=== PATIENT | female | born 1955 | race African-American/Black ===

== ENCOUNTER 2018-12-23 15:10 | Emergency (ER) | payer SELFPAY ==
[~2018-12-23] VITALS: Ht 152.4 cm; Wt 104.0 kg
[2018-12-23 16:21] VITALS: BP 143/89
== END 2018-12-23 18:33 | disposition home or self-care (01) ==
LOC: ER 15:10
DX: S90.01XA Contusion of right ankle, initial encounter (principal); S60.221A Contusion of right hand, initial encounter; I10 Essential (primary) hypertension; E11.9 Type 2 diabetes mellitus without complications; X58.XXXA Exposure to other specified factors, initial encounter; Y93.01 Activity, walking, marching and hiking; Y92.89 Other specified places as the place of occurrence of the external cause
CPT/HCPCS: 73610; 73630; 99283

== ENCOUNTER 2022-08-18 16:49 | Emergency (ER) | payer MEDICARE, MEDICAID ==
[~2022-08-18] VITALS: Ht 152.4 cm; Wt 93.0 kg
[2022-08-18] MEDS ORDERED: LIDOCAINE HCL 1% 20ML VIAL (Pyxis) INJ INFIL ONE (18:00)
[2022-08-18] MEDS ORDERED: LIDOCAINE HCL 1% 10 MG/ML 10ML VIAL INJ NR (18:30)
[2022-08-18] MEDS ORDERED: IBUP-2028 PO (18:53)
== END 2022-08-18 19:13 | disposition home or self-care (01) ==
LOC: ER 16:56
DX: L02.412 Cutaneous abscess of left axilla (principal); Z90.49 Acquired absence of other specified parts of digestive tract
CPT/HCPCS: 10060; 99282; J3490

== ENCOUNTER 2022-08-20 15:52 | Emergency (ER) | payer MEDICARE, MEDICAID ==
[~2022-08-20] VITALS: Ht 152.4 cm; Wt 91.0 kg
[~2022-08-20 15:52] MED LIST: IBUP-2028 PO
[2022-08-20 16:34] VITALS: BP 164/62
[2022-08-20] MEDS ORDERED: SULF1TAB48 MT (19:23)
[2022-08-20] MEDS ORDERED: CEPH500C2 MT (19:23)
== END 2022-08-20 20:28 | disposition home or self-care (01) ==
LOC: ER 15:52
DX: L02.411 Cutaneous abscess of right axilla (principal); E11.9 Type 2 diabetes mellitus without complications; Z48.00 Encounter for change or removal of nonsurgical wound dressing; Z90.49 Acquired absence of other specified parts of digestive tract; Z86.39 Personal history of other endocrine, nutritional and metabolic disease
CPT/HCPCS: 99281; 99283

== ENCOUNTER 2022-12-18 15:57 | Emergency (ER) | payer MEDICARE, MEDICAID ==
[~2022-12-18] VITALS: Ht 160 cm; Wt 97.7 kg
[~2022-12-18 15:57] MED LIST changes: +CEPH500C2 MT; +SULF1TAB48 MT
[2022-12-18] MEDS ORDERED: IBUPROFEN 600MG TABLET PO STA (17:30)
[2022-12-18 17:45] VITALS: BP 141/69
[2022-12-18] MEDS ORDERED: NAPR-681 PO (18:00)
[2022-12-18] MEDS ORDERED: CYCL5TAB PO (18:00)
== END 2022-12-18 18:10 | disposition home or self-care (01) ==
LOC: ER 15:57
DX: S16.1XXA Strain of muscle, fascia and tendon at neck level, initial encounter (principal); S39.012A Strain of muscle, fascia and tendon of lower back, initial encounter; E11.9 Type 2 diabetes mellitus without complications; I10 Essential (primary) hypertension; V49.40XA Driver injured in collision with unspecified motor vehicles in traffic accident, initial encounter; Y93.89 Activity, other specified; Y92.89 Other specified places as the place of occurrence of the external cause; Y99.8 Other external cause status
CPT/HCPCS: 72100; 99282

== ENCOUNTER 2024-03-07 07:51 | Emergency (ER) | payer MEDICARE, MEDICAID ==
[~2024-03-07] VITALS: Ht 160 cm; Wt 109.0 kg
[~2024-03-07 07:51] MED LIST changes: +CYCL5TAB PO; +NAPR-681 PO
[2024-03-07] MEDS ORDERED: T3 PO (09:42)
[2024-03-07] MEDS: ACETAMINOPHEN 500MG TABLET PO ONE (09:56)
[2024-03-07 10:15] VITALS: BP 148/87; PULSE 88; RESP 18; TEMP 98.1
== END 2024-03-07 10:15 | disposition home or self-care (01) ==
LOC: ER 08:22
DX: M17.12 Unilateral primary osteoarthritis, left knee (principal); E11.9 Type 2 diabetes mellitus without complications; I10 Essential (primary) hypertension; Z90.89 Acquired absence of other organs; Z98.890 Other specified postprocedural states; Z90.49 Acquired absence of other specified parts of digestive tract; Z86.39 Personal history of other endocrine, nutritional and metabolic disease
CPT/HCPCS: 73560; 99282; 99283